=== PATIENT | female | born 1980 | race Hispanic/Latino ===

== ENCOUNTER 2018-10-28 23:38 | Emergency (ER) | payer BC ==
[2018-10-28 23:39] VITALS: BMI 38.0
[2018-10-29 00:45] VITALS: BP 112/74; PULSE 91; RESP 18; TEMP 98.3; O2SAT 97
--- NOTE | 2018-10-29 00:47 | ED PDOC ---
Arrival/HPI - General Historian: Patient - History of Present Illness Narrative History of Present Illness (Text): 10/29/18 00:47 Patient is a 37 yo female currently with a history of dyslipidemia who presents with chest pain. Patient states that a few hours ago, she was sitting at home when suddenly she felt chest and back pain. She then started to feel lightheaded, so she decided to come to the hospital. She states that all the symptoms resolved on their own, and she is presently asymptomatic. She denies SOB, palpitations, headache. She has both a PMD and OBGYN who she follows with regularly. Time/Duration: Prior to Arrival Symptom Onset: Sudden Symptom Course: Resolved Activities at Onset: Rest Context: Sitting <Nicole Ceballos - Last Filed: 10/29/18 00:55> <Elian Biswas - Last Filed: 10/29/18 05:42> - General Chief Complaint: Chest Pain Time Seen by Provider: 10/28/18 23:46 Past Medical History - Provider Review Nursing Documentation Reviewed: Yes - Infectious Disease Hx of Infectious Diseases: None - Cardiac Hx Cardiac Disorders: No Hx Hypertension: No - Psychiatric Hx Depression: Yes Hx Substance Use: Yes ( occaisional) - Anesthesia Hx Anesthesia: No <Nicole Ceballos - Last Filed: 10/29/18 00:55> Family/Social History - Physician Review Nursing Documentation Reviewed: Yes Family/Social History: Unknown Family HX Smoking Status: Never Smoked Hx Alcohol Use: No Hx Substance Use: Yes ( occaisional) <Nicole Ceballos - Last Filed: 10/29/18 00:55> Allergies/Home Meds <Nicole Ceballos - Last Filed: 10/29/18 00:55> <Elian Biswas - Last Filed: 10/29/18 05:42> Allergies/Adverse Reactions: Allergies shellfish derived Allergy (Severe, Verified 10/29/18 00:02) ANAPHYLAXIS iodine Allergy (Verified 10/29/18 00:02) ANAPHYLAXIS tree nut Allergy (Verified 10/29/18 00:02) ANAPHYLAXIS Home Medications: Home Meds Medication Instructions Recorded Confirmed Vit No.126/Iron/Folic 1 tab PO DAILY 09/26/18 09/26/18 [Classic Tablet] Review of Systems - Review of Systems Constitutional: absent: Fatigue, Fevers Eyes: absent: Vision Changes ENT: absent: Hearing Changes Respiratory: absent: SOB, Cough Cardiovascular: Chest Pain (resolved). absent: Palpitations, Edema Gastrointestinal: absent: Abdominal Pain, Nausea, Vomiting Genitourinary Female: absent: Dysuria, Hematuria Musculoskeletal: Back Pain (resolved) Skin: absent: Rash, Pruritis, Skin Lesions Neurological: absent: Headache, Dizziness, Focal Weakness Endocrine: absent: Diaphoresis Hemo/Lymphatic: absent: Adenopathy <Nicole Ceballos - Last Filed: 10/29/18 00:55> Physical Exam Vital Signs Reviewed: Yes Vital Signs Temp Pulse Resp BP Pulse Ox 10/29/18 00:45 98.3 F 91 H 18 112/74 97 Temperature: Afebrile Blood Pressure: Normal Pulse: Regular Respiratory Rate: Normal Appearance: Positive for: Well-Appearing, Non-Toxic, Comfortable Pain Distress: None Mental Status: Positive for: Alert and Oriented X 3 - Systems Exam Head: Present: Atraumatic, Normocephalic Pupils: Present: PERRL Extroacular Muscles: Present: EOMI Conjunctiva: Present: Normal Mouth: Present: Moist Mucous Membranes Respiratory/Chest: Present: Clear to Auscultation, Good Air Exchange Cardiovascular: Present: Regular Rate and Rhythm, Normal S1, S2 Abdomen: No: Tenderness, Distention Back: Present: Normal Inspection. No: Midline Tenderness, Paraspinal Tenderness Upper Extremity: Present: Normal Inspection Lower Extremity: Present: Normal Inspection. No: Edema Neurological: Present: GCS=15, CN II-XII Intact, Speech Normal, Motor Func Grossly Intact, Normal Sensory Function Skin: Present: Warm, Dry, Normal Color Psychiatric: Present: Alert, Oriented x 3, Normal Insight, Normal Concentration, Normal Affect, Normal Mood <Nicole Ceballos - Last Filed: 10/29/18 00:55> Vital Signs Temp Pulse Resp BP Pulse Ox 10/29/18 00:45 98.3 F 91 H 18 112/74 97 <Elian Biswas - Last Filed: 10/29/18 05:42> Medical Decision Making ED Course and Treatment: 10/29/18 00:54 EKG 10/29/18 00:55 Explained to patient that vitals and EKG are normal. Patient is asymptomatic and is requesting to go home. Advised her to follow-up with PMD within the next week and to return to ED if symptoms recur. Patient is in agreement with plan to be discharged home. - RAD Interpretation Radiology Orders: 10/29/18 00:09 CHEST PORTABLE [RAD] Stat - EKG Interpretation EKG Interpretation (Text): 10/29/18 00:[address] elevations Interpreted by ED Physician: Yes Type: 12 lead EKG Comparison: No previous EKG avail. <Nicole Ceballos - Last Filed: 10/29/18 00:55> - PA / WILDLIFE PHOTOGRAPHER / Resident Statement / has reviewed & agrees with the documentation as recorded. / has examined the patient and agrees with the treatment plan. <Elian Biswas - Last Filed: 10/29/18 05:42> Disposition/Present on Arrival - Present on Arrival Any Indicators Present on Arrival: No History of DVT/PE: No History of Uncontrolled Diabetes: No Urinary Catheter: No History of Decub. Ulcer: No History Surgical Site Infection Following: None - Disposition Have Diagnosis and Disposition been Completed?: Yes Disposition Time: 00:56 Patient Plan: Discharge <Nicole Ceballos - Last Filed: 10/29/18 00:55> - Present on Arrival Any Indicators Present on Arrival: No History of DVT/PE: No History of Uncontrolled Diabetes: No Urinary Catheter: No History of Decub. Ulcer: No - Disposition Have Diagnosis and Disposition been Completed?: Yes <Elian Biswas - Last Filed: 10/29/18 05:42> - Disposition Diagnosis: Non-cardiac chest pain Disposition: HOME/ ROUTINE Condition: GOOD Discharge Instructions (ExitCare): Chest Pain That Is Not Caused by the Heart (DC) Additional Instructions: ARUNA MIRAMONTES, thank you for letting us take care of you today. The emergency medical care you received today was directed at your acute symptoms. If you were prescribed any medication, please fill it and take as directed. It may take several days for your symptoms to resolve. Return to the Emergency Department if your symptoms worsen, do not improve, or if you have any other problems. Please contact your doctor or call one of the physicians/clinics you have been referred to that are listed on the Patient Visit Information form that is included in your discharge packet. Bring any paperwork you were given at discharge with you along with any medications you are taking to your follow up visit. Our treatment cannot replace ongoing medical care by a primary care provider outside of the emergency department. Thank you for allowing the [facility] team to be part of your care today. Follow up with your primary care doctor in 2-3 days for re-evaluation and further management. Referrals: [facility], [Non-Staff] - Follow up with primary Forms: [employer] ([place]ian)
--- NOTE | 2018-10-29 11:42 | CARD ---
APPROVED REPORT Date of service: 10/28/2018 EKG Measurement Heart [id number] <Conclusion> Normal sinus rhythm Normal ECG
== END 2018-10-29 02:11 | disposition home or self-care (01) ==
LOC: ED 23:38
DX: R07.89 Other chest pain (principal); E78.5 Hyperlipidemia, unspecified